=== PATIENT | female | born 1980 | race Caucasian/White ===

== ENCOUNTER → 2020-02-03 | Outpatient (CLI) | payer BC | LOC: M LABSMTC 10:01 | PROVIDERS: ATTEND Ophthalmology | DX: Z01.812 Encounter for preprocedural laboratory examination (principal); Z11.59 Encounter for screening for other viral diseases ==

== ENCOUNTER → 2020-02-17 | Outpatient (CLI) | payer BC | LOC: M LABSMTC 12:22 | PROVIDERS: ATTEND Ophthalmology | DX: Z20.828 Contact with and (suspected) exposure to other viral communicable diseases (principal) ==

== ENCOUNTER → 2021-02-26 | Outpatient (CLI) | payer BC ==
--- NOTE | 2021-02-26 13:24 | REP ---
INDICATION: COUGH COMPARISON: None. TECHNIQUE: PA and lateral. FINDINGS: The mediastinum and cardiac silhouette are normal. The lung james are clear and without acute consolidation, effusion, or pneumothorax. The skeletal structures are intact and normal. IMPRESSION: No acute cardiopulmonary process. <Electronically signed by Thomas Bose > 02/26/21 [id number]
== END ==
LOC: M RAD 12:53
PROVIDERS: ATTEND Physician Assistant
DX: R05.9 Cough, unspecified (principal)